=== PATIENT | female | born 1990 | race Caucasian/White ===

== ENCOUNTER 2020-06-28 13:20 | Outpatient (CLI) | payer OTHER, SELFPAY ==
--- NOTE | ~2020-06-28 | US_ITS ---
US breast LT limited INDICATION: Palpable breast abnormality. Family history of breast cancer. TECHNIQUE: Dedicated left breast ultrasound COMPARISON: No prior studies for comparison. FINDINGS: At 12:00, 4 cm from the nipple, there is there is an 8 mm cyst. At 12:00, 1.5 cm from the n ipple there is there is a 4 mm cyst. IMPRESSION: 1: No sonographic evidence for malignancy in the left breast. Benign findings. BI-RADS CATEGORY 2 - BENIGN FINDINGS Reviewed, dictated and finalized at location A.
== END 2020-06-28 13:21 | disposition home or self-care (01) ==
PROVIDERS: Visit Provider Obstetrics & Gynecology
DX: N60.02 Solitary cyst of left breast (principal)
CPT/HCPCS: 76642

== ENCOUNTER → 2023-04-02 09:46 | Outpatient (CLI) | payer OTHER, SELFPAY ==
--- NOTE | ~2023-04-02 | MMUS_ITS ---
EXAMINATION: MM diagnostic karen BI w eusebio, US breast BI complete HISTORY: Bilateral breast masses TECHNIQUE: Full field and spot ML, MLO and CC 3-D tomosynthesis images of both breasts were performed and synthetic 2-D images were generated. CAD analysis was submitted and interpreted. High resolution complete bilateral breast ultrasound examination including all 4 quadrants and subareolar areas was performed. COMPARISON: 05/11/2022 outside bilateral mammogram 05/11/2022 bilateral ultrasound examination BREAST PARENCHYMAL COMPOSITION: The breasts are extremely dense, which lowers the sensitivity of mamm ography. FINDINGS: MAMMOGRAPHIC FINDINGS: An approximately 12 mm circumscribed opacity with halo sign is noted in the central left breast on ML and MLO views. This is not evident on 05/11/2022. No other significant new or developing density, arc hitectural distortion, malignant constipation, skin thickening or retraction is evident. Additional bilateral masses may be present but obscured by the extremely dense fibroglandular stroma. Bilateral complete breast ultrasound examination was performed. ULTRASOUND: There are numerous bilateral benign-appearing cysts, complicated cysts and circumscribed hypoechoic s olid lesions, with benign sonographic features. The largest lesion on the right is situated at 9:00 6 cm from the nipple, measuring 1.75 x 0.9 x 1.9 cm dimension, with some internal vascularity on color flow imaging. There is through transmission and posterior enhancement. The outline is mildly irregular and there is internal vascularity. Ultrasound -guided biopsy is recommended. Largest lesion on the left at 9:00 3 cm from the nipple is a hypoechoic solid lesion with through tra nsmission and posterior enhancement, measuring approximately 0.8 x 1.3 cm, without internal vasculari ty. The margins are not completely circumscribed sonographically. Given the incomplete circumcision o f the margins and the fact that this is new since prior examination, ultrasound-guided biopsy is marielos mmended. IMPRESSION: 1. Mildly irregular hypoechoic circumscribed solid 1.75 x 0.9 x 1.9 cm lesion of right breast at 9:00 6 cm from the nipple with internal vascularity Incompletely circumscribed new 0.8 x 1.3 cm hypoechoic solid lesion of left breast at 9:00 3 cm from nipple (Neither of these 2 lesions is identified on the bilateral Limited 05/11/2022 outside ultrasound exami [facility] 2. Ultrasound-guided biopsy of right breast 9:00 lesion 6 cm from nipple and left breast lesion at 9: 00 3 cm from nipple is recommended BI-RADS category 4, suspicious findings. Dr. Calderon telephoned the report and ultrasound-guided biopsy recommendations on 04/02/2023 1200 hours t o Nurse Renay. Reviewed, dictated and finalized at location A. IMPRESSION: 1. Mildly irregular hypoechoic circumscribed solid 1.75 x 0.9 x 1.9 cm lesion o f right breast at 9:00 6 cm from the nipple with internal vascularity Incompletely circumscribed new 0.8 x 1.3 cm hypoechoic solid lesion of left [place]son ast at 9:00 3 cm from nipple (Neither of these 2 lesions is identified on the bilateral Limited 05/11/2022 ou tside ultrasound examination from [facility] 2. Ultrasound-guided biopsy of right breast 9:00 lesion 6 cm from nipple and le ft breast lesion at 9:00 3 cm from nipple is recommended BI-RADS category 4, suspicious findings. Dr. Calderon telephoned the report and ultrasound-guided biopsy recommendations on 04/02/2023 1200 hours to Nurse Renay.
== END ==
PROVIDERS: PCP Family Medicine; Visit Provider Surgery
DX: R92.8 Other abnormal and inconclusive findings on diagnostic imaging of breast (principal)
CPT/HCPCS: 76641; 77062; 77066; G0279

== ENCOUNTER 2023-10-04 07:46 | Outpatient (CLI) | payer OTHER, SELFPAY ==
--- NOTE | ~2023-10-04 | US_ITS ---
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 IMPRESSION: BI-RADS code right 2: Benign Reviewed, dictated and finalized at [facility]. Reviewed, dictated and finalized at location A. [place] [employer]
== END 2023-10-04 07:47 ==
DX: D24.1 Benign neoplasm of right breast (principal)
CPT/HCPCS: 76642